=== PATIENT | female | born 1995 | race African-American/Black ===

== ENCOUNTER 2024-07-22 13:04 | Emergency (ER) | payer OTHER ==
[~2024-07-22] VITALS: Ht 165.1 cm; Wt 84.0 kg
[2024-07-22 13:10] VITALS: TEMP 36.9; O2SAT 98
[2024-07-22] MEDS ORDERED: CYCL10TA21 MT (13:47)
[2024-07-22] MEDS ORDERED: IBUP-2030 MT (13:47)
[2024-07-22 13:56] VITALS: BP 147/71; PULSE 100; RESP 16
[2024-07-22] MEDS: IBUPROFEN 800MG TABLET PO ONE (13:56)
[2024-07-22] MEDS: CYCLOBENZAPRINE 10MG TABLET PO STA (13:56)
== END 2024-07-22 14:35 | disposition home or self-care (01) ==
LOC: ER 13:04
DX: S16.1XXA Strain of muscle, fascia and tendon at neck level, initial encounter (principal); V43.52XA Car driver injured in collision with other type car in traffic accident, initial encounter; Y93.89 Activity, other specified; Y92.410 Unspecified street and highway as the place of occurrence of the external cause; Y99.8 Other external cause status
CPT/HCPCS: 99283